=== PATIENT | female | born 1970 | race Caucasian/White ===

== ENCOUNTER 2021-06-06 11:20 | Inpatient (IN) | payer BC, OTHER ==
[~2021-06-06] VITALS: Ht 170.2 cm; Wt 103.4 kg
[~2021-06-06 11:20] MED LIST: ADIPEX-P37.5 M1 PO; COLACE 100MG C100 MG PO; FEOSOL325 MG PO; HEARTBURN RELIE20 MG PO; IBUPROFEN600 MG PO; NEXIUM20 MG PO; NORCO 5-325 TA1 EACH PO; PROTONIX 40 MG40 M1 PO; VITAMIN C1000 MG PO
[2021-06-06 12:07] LABS: HEMOGLOBIN 14.6 gm/dl (12.3-15.3); RED BLOOD COUNT 4.75 M/UL (4.00-5.10); WHITE BLOOD COUNT 4.1 K/UL (4.5-11.0)
[2021-06-06 12:31] LABS: BUN/CREATININE RATIO 14 (0-10)
[2021-06-06] MEDS ORDERED: CYANOCOBAL1000 MCG/1 INJ (13:42)
[2021-06-06] MEDS ORDERED: OMEGA 3 1,0001 EACH PO (13:42)
[2021-06-06] MEDS ORDERED: NEXIUM40 MG PO (13:43)
[2021-06-06] MEDS ORDERED: DOTTI1 EAC1 TD (13:45)
[2021-06-06] MEDS ORDERED: PROGESTERONE200 MG PO (13:45)
[2021-06-06] MEDS ORDERED: TYLENOL EXTRA500 MG PO (13:46)
[2021-06-06] MEDS ORDERED: ADVIL200 MG PO (13:47)
[2021-06-07 03:58] LABS: HEMOGLOBIN 14.5 gm/dl (12.3-15.3); RED BLOOD COUNT 4.77 M/UL (4.00-5.10); WHITE BLOOD COUNT 4.4 K/UL (4.5-11.0)
[2021-06-07 04:13] LABS: BUN/CREATININE RATIO 18 (0-10)
[2021-06-08 06:23] LABS: HEMOGLOBIN 13.6 gm/dl (12.3-15.3); RED BLOOD COUNT 4.46 M/UL (4.00-5.10); WHITE BLOOD COUNT 5.3 K/UL (4.5-11.0)
[2021-06-08 07:00] LABS: BUN/CREATININE RATIO 29 (0-10)
[2021-06-08] MEDS ORDERED: DOXYCYCLINE HY100 M2 PO (10:53)
[2021-06-08] MEDS ORDERED: DEXAMETHASONE 44 MG PO (10:53)
== END 2021-06-08 14:42 | disposition home or self-care (01) | DRG 177 ==
LOC: ER1 11:20 → CDU 13:05 → MED SURG 4 21:12
PROVIDERS: ADMIT Internal Medicine
PROC: 8E0ZXY6 Isolation (ICD-10-PCS; principal; 2021-06-06)
PROC: XW033E5 Introduction of Remdesivir Anti-infective into Peripheral Vein, Percutaneous Approach, New Technology Group 5 (ICD-10-PCS; 2021-06-06)
DX: U07.1 COVID-19 (principal); J12.82 Pneumonia due to coronavirus disease 2019; J96.01 Acute respiratory failure with hypoxia; K21.9 Gastro-esophageal reflux disease without esophagitis; Z90.49 Acquired absence of other specified parts of digestive tract; Z98.84 Bariatric surgery status; Z90.710 Acquired absence of both cervix and uterus; Z87.891 Personal history of nicotine dependence; Z79.890 Hormone replacement therapy
CPT/HCPCS: 0240U; 36415; 36600; 71045; 80053; 82550; 82553; 82728; 82803; 83615; 83735; 83874; 84484; 85025; 85379; 93005; 94664; 96374; 99285; J1100; J1650; J2405; J7030; J7050

== ENCOUNTER → 2021-08-03 | Outpatient (CLI) | payer BC ==
[~2021-08-03] MED LIST changes: +ADVIL200 MG PO; +CYANOCOBAL1000 MCG/1 INJ; +DEXAMETHASONE 44 MG PO; +DOTTI1 EAC1 TD; +DOXYCYCLINE HY100 M2 PO; +NEXIUM40 MG PO; +OMEGA 3 1,0001 EACH PO; +PROGESTERONE200 MG PO; +TYLENOL EXTRA500 MG PO
== END ==
LOC: EMI 08:33
DX: D49.7 Neoplasm of unspecified behavior of endocrine glands and other parts of nervous system (principal); G95.89 Other specified diseases of spinal cord
CPT/HCPCS: 72158; A9577